=== PATIENT | female | born 1960 | race Caucasian/White ===

== ENCOUNTER 2020-06-04 07:56 | Outpatient (CLI) | payer OTHER ==
[~2020-06-04 07:56] MED LIST: METO25TA6 PO; WARFARIN PO
== END 2020-06-04 20:45 | disposition home or self-care (01) ==
LOC: SMA 07:56
PROVIDERS: ATTEND Internal Medicine
DX: Z12.31 Encounter for screening mammogram for malignant neoplasm of breast (principal)
CPT/HCPCS: 77067